=== PATIENT | male | born 1955 | race Hispanic/Latino ===

== ENCOUNTER 2021-04-13 17:34 | Inpatient (IN) | payer OTHER ==
[~2021-04-13] VITALS: Ht 160 cm; Wt 80.3 kg
[2021-04-13] MEDS ORDERED: IBUPROFEN 600 MG TAB PO STA (18:18)
[2021-04-13] MEDS ORDERED: SODIUM CHLORIDE 0.9% 1000ML 1,000 ML IV STA (18:20)
[2021-04-13] MEDS ORDERED: ACETAMINOPHEN 325 MG TAB ONE (18:22)
[2021-04-13] MEDS ORDERED: CEFTRIAXONE 1 GM in SODIUM CHLORIDE 0.9% 50ML 50 ML IV ONE (18:30)
[2021-04-13] MEDS: ACETAMINOPHEN 325 MG TAB PO PRN (18:30)
[2021-04-13 18:32] LABS: BASOPHILS % 0.1 % (0.0-1.0); EOSINOPHILS # (AUTO) 0.1 (0.0-0.4); EOSINOPHILS % 0.8 % (0.0-6.0); HEMATOCRIT 45.7 % (38.2-49.6); HEMOGLOBIN 15.7 g/dL (14.0-18.0); LYMPHOCYTES % 12.5 % (18.0-39.1); MEAN CORPUSCULAR HGB CONC 34.4 g/dL (31-35); MEAN CORPUSCULAR VOLUME 78.7 fL (81-99); MONOCYTES # (AUTO) 0.9 (0.2-0.8); MONOCYTES % 10.4 % (4.4-11.3); NEUTROPHILS # (AUTO) 6.2 (2.1-6.9); NEUTROPHILS % 75.5 % (38.7-80.0); PLATELET COUNT 347 x10e3/uL (140-360); RED BLOOD COUNT 5.81 x10e6/uL (4.3-5.7); RED CELL DISTRIBUTION WIDTH 14.1 % (11.7-14.4)
[2021-04-13 18:46] LABS: CLARITY,URINE SL CLOUDY (CLEAR); COLOR,URINE AMBER (YELLOW); KETONES,URINE TRACE (NEGATIVE); LEUKOCYTE ESTERASE ,URINE NEGATIVE (NEGATIVE); NITRITE,URINE NEGATIVE (NEGATIVE); PROTEIN,URINE DIPSTICK 2+ (NEGATIVE); URINE UROBILINOGEN 1 mg/dL (0.2 - 1)
[2021-04-13 18:53] LABS: ALBUMIN 3.6 g/dL (3.5-5.0); ALBUMIN/GLOBULIN RATIO 0.8 (0.8-2.0); ANION GAP 16.5 mmol/L (8-16); CALCIUM 9.4 mg/dL (8.4-10.2); CREATININE, SERUM 0.88 mg/dL (0.72-1.25)
[2021-04-13 18:54] LABS: POTASSIUM 2.5 mmol/L (3.5-5.1)
[2021-04-13 19:00] LABS: AMORPHOUS SEDIMENT,URINE MODERATE (FEW); BACTERIA,URINE FEW /HPF; EPITHELIAL CELLS,URINE RARE /LPF; RBC,URINE 0-5 /HPF (0-5)
[2021-04-13] MEDS ORDERED: POTASSIUM CHLORIDE 10MEQ EA PO ONE (19:30)
[2021-04-13] MEDS: SODIUM CHLORIDE 0.9% 1000ML 1,000 ML IV SCH (21:21)
[2021-04-13 21:28] LABS: CREATINE KINASE MB 0.4 ng/mL (0-5.0)
[2021-04-13 23:50] VITALS: BP 104/48
[2021-04-14] VITALS (9 sets, daily range): BP systolic 98–110; BP diastolic 48–77
[2021-04-14] MEDS: SODIUM CHLORIDE 0.9% 1000ML 1,000 ML IV SCH ×2 (04:52→20:25)
[2021-04-14 05:00] LABS: EOSINOPHILS # (AUTO) 0.2 (0.0-0.4); EOSINOPHILS % 3.4 % (0.0-6.0); HEMATOCRIT 39.6 % (38.2-49.6); HEMOGLOBIN 13.4 g/dL (14.0-18.0); LYMPHOCYTES # (AUTO) 0.8 (1.0-3.2); LYMPHOCYTES % 13.8 % (18.0-39.1); MEAN CORPUSCULAR HEMOGLOBIN 27.3 pg (28-32); MEAN CORPUSCULAR HGB CONC 33.8 g/dL (31-35); MEAN CORPUSCULAR VOLUME 80.7 fL (81-99); MONOCYTES # (AUTO) 0.6 (0.2-0.8); NEUTROPHILS % 72.1 % (38.7-80.0); PLATELET COUNT 292 x10e3/uL (140-360); RED BLOOD COUNT 4.91 x10e6/uL (4.3-5.7); RED CELL DISTRIBUTION WIDTH 14.4 % (11.7-14.4)
[2021-04-14] MEDS ORDERED: IOPAMIDOL 370 MG/ML 200 ML INFUS..BTL INJ ONE (05:19)
[2021-04-14] MEDS ORDERED: SODIUM CHLORIDE 0.9% 50ML 50 ML ONE (05:19)
[2021-04-14 05:31] LABS: CREATINE KINASE MB 0.6 ng/mL (0-5.0)
[2021-04-14 05:51] LABS: ANION GAP 12.1 mmol/L (8-16); CREATININE, SERUM 0.8 mg/dL (0.72-1.25); POTASSIUM 3.1 mmol/L (3.5-5.1)
[2021-04-14] MEDS ORDERED: POTASSIUM CHLORIDE 20 MEQ TAB CR PO STA ×2 (07:52)
[2021-04-14] MEDS: FAMOTIDINE 20 MG TAB PO SCH ×2 (08:00→16:30)
[2021-04-14] MEDS ORDERED: GUAIFENESIN 200 MG/10 ML UDC PO PRN (08:30)
[2021-04-14] MEDS: ZINC SULFATE 220 MG CAP PO SCH (09:00)
[2021-04-14] MEDS: CEFTRIAXONE 1 GM in SODIUM CHLORIDE 0.9% 50ML 50 ML IV SCH (09:00)
[2021-04-14] MEDS: LACTOBACILLUS ACIDOPHILUS CAPSULE PO SCH ×3 (09:00→20:25)
[2021-04-14] MEDS: ASCORBIC ACID 500 MG TAB PO SCH (09:00)
[2021-04-14] MEDS: CHOLECALCIFEROL 1,000 UNIT TAB PO SCH (09:00)
[2021-04-14] MEDS: NICOTINE 21 MG/EA PATCH TOP SCH (09:00)
[2021-04-14] MEDS: ENOXAPARIN SOD INJ 40 MG/0.4 ML SYR SC SCH (09:00)
[2021-04-14] MEDS: ALBUTEROL/IPRATROPIUM 3 ML NEB NEB SCH ×3 (11:35→20:45)
[2021-04-14] MEDS ORDERED: LOPERAMIDE HCL 2 MG CAP PO PRN (12:45)
[2021-04-14 14:47] LABS: CREATINE KINASE MB 0.7 ng/mL (0-5.0)
[2021-04-14] MEDS: ACETAMINOPHEN 325 MG TAB PO PRN (15:48)
[2021-04-14] MEDS ORDERED: GUAIFENESIN/CODEINE 5 ML LIQD PO PRN (18:30)
[2021-04-14 20:43] LABS: HIV 1&2 AB SCREEN NON-REACTIVE (NONREACTIVE)
[2021-04-15] VITALS: BP 102/61
[2021-04-15] MEDS: ALBUTEROL/IPRATROPIUM 3 ML NEB NEB SCH ×4 (00:38→10:33)
[2021-04-15 04:00] VITALS: BP 114/70
[2021-04-15 06:18] LABS: BASOPHILS % 0.2 % (0.0-1.0); EOSINOPHILS # (AUTO) 0.1 (0.0-0.4); EOSINOPHILS % 2.2 % (0.0-6.0); HEMATOCRIT 38.1 % (38.2-49.6); HEMOGLOBIN 12.8 g/dL (14.0-18.0); LYMPHOCYTES # (AUTO) 1.1 (1.0-3.2); LYMPHOCYTES % 19.1 % (18.0-39.1); MEAN CORPUSCULAR HEMOGLOBIN 26.9 pg (28-32); MEAN CORPUSCULAR HGB CONC 33.6 g/dL (31-35); MONOCYTES # (AUTO) 0.6 (0.2-0.8); MONOCYTES % 10.7 % (4.4-11.3); NEUTROPHILS % 66.8 % (38.7-80.0); PLATELET COUNT 344 x10e3/uL (140-360); RED BLOOD COUNT 4.76 x10e6/uL (4.3-5.7); RED CELL DISTRIBUTION WIDTH 14.7 % (11.7-14.4)
[2021-04-15 06:43] LABS: BLOOD UREA NITROGEN < 5 mg/dL (7-26); CALCIUM 8.6 mg/dL (8.4-10.2); CARBON DIOXIDE 23 mmol/L (22-29); CHLORIDE 105 mmol/L (98-107); CREATININE, SERUM 0.68 mg/dL (0.72-1.25); EST GLOMERULAR FILTRATION RATE 117 ML/MIN (60-); GLUCOSE 94 mg/dL (74-118); SODIUM 139 mmol/L (136-145)
[2021-04-15 06:47] LABS: BUN/CREATININE RATIO 7 (6-25)
[2021-04-15] MEDS: FAMOTIDINE 20 MG TAB PO SCH (07:30)
[2021-04-15 07:33] VITALS: BP 109/73
[2021-04-15] MEDS: LACTOBACILLUS ACIDOPHILUS CAPSULE PO SCH (09:00)
[2021-04-15] MEDS: NICOTINE 21 MG/EA PATCH TOP SCH (09:00)
[2021-04-15] MEDS: ENOXAPARIN SOD INJ 40 MG/0.4 ML SYR SC SCH (09:00)
[2021-04-15] MEDS: ZINC SULFATE 220 MG CAP PO SCH (09:00)
[2021-04-15] MEDS: ASCORBIC ACID 500 MG TAB PO SCH (09:00)
[2021-04-15] MEDS: CEFTRIAXONE 1 GM in SODIUM CHLORIDE 0.9% 50ML 50 ML IV SCH (09:00)
[2021-04-15] MEDS: CHOLECALCIFEROL 1,000 UNIT TAB PO SCH (09:00)
[2021-04-15 09:36] VITALS: BP 109/73
[2021-04-15] MEDS ORDERED: PROVENTIL HFA6.7 GM INH (09:44)
[2021-04-15] MEDS ORDERED: MUCINEX DM ER1 EACH PO (09:44)
[2021-04-15] MEDS ORDERED: CEFDINIR300 MG PO (09:47)
[2021-04-15] MEDS ORDERED: POTASSIUM CHLORIDE 10MEQ EA PO ONE (10:30)
[2021-04-15 11:31] VITALS: BP 121/74
== END 2021-04-15 13:41 | disposition home or self-care (01) | DRG 871 ==
LOC: ER 17:39 → ERHOLD 20:55 → MED/SURG2 22:20
PROVIDERS: ADMIT Internal Medicine; ATTEND Internal Medicine
DX: A41.9 Sepsis, unspecified organism (principal); J18.9 Pneumonia, unspecified organism; E87.6 Hypokalemia; I10 Essential (primary) hypertension; E78.5 Hyperlipidemia, unspecified; N40.0 Benign prostatic hyperplasia without lower urinary tract symptoms; Z90.49 Acquired absence of other specified parts of digestive tract; Z20.822 Contact with and (suspected) exposure to COVID-19; R06.03 Acute respiratory distress; R19.7 Diarrhea, unspecified; K21.9 Gastro-esophageal reflux disease without esophagitis
CPT/HCPCS: 36415; 71045; 71260; 80048; 80053; 81001; 82550; 82553; 83605; 84484; 85025; 87040; 87086; 87390; 87400; 87493; 93005; 94640; 99284; G0433; G0435; J0456; J0696; J1650; J7030; J7050; Q9967; U0002